=== PATIENT | male | born 1945 | race Caucasian/White ===

== ENCOUNTER 2016-11-22 08:26 | Outpatient (CLI) | payer MEDICARE ==
--- NOTE | 2016-11-22 12:47 | DEXA Report ---
DEXA BONE MINERAL DENSITY SCAN: 11/22/2016 CLINICAL HISTORY: A 70-year-old male with primary hyperparathyroidism. TECHNIQUE: Dual energy x-ray absorptiometry (DXA) was performed on a [employer] system. Regions measured are the AP spine, femoral neck, and, if needed, forearm. COMPARISON: None. In accordance with the International Society for Clinical Densitometry (ISCD) guidelines, data from previous exams may be reanalyzed using current recommendations and techniques. This is done to allow a more accurate basis for comparison with the current study. FINDINGS: It must be noted that there are no WHO guidelines for males. Present exam will be interpreted using WHO guidelines for females. Radius 33%. Bone mineral density is 1.134 grams/sq cm for a T-score of 1.5. This is within normal limits according to World Health Organization guidelines for females. L1 through L4 bone mineral density is 1.753 grams/sq cm for a T-score of 4.4. This is within normal limits according to World Health Organization guidelines for females. Left total hip bone mineral density is 1.220 grams/sq cm. This is compatible with a T-score of 0.8 which is within normal limits according to World Health Organization guidelines for females. Left femoral neck bone mineral density is 0.988 grams/sq cm for a T-score of - 0.6. This is within normal limits according to World Health Organization guidelines for females. The data for the lumbar spine is as follows: REGION BMD (g/cm/cm) T-SCORE Z-SCORE L1 1.546 3.2 3.0 L2 1.854 5.1 4.9 L3 1.962 6.0 5.8 L4 1.671 3.6 3.4 TOTAL 1.753 4.4 4.2 NOTE: All evaluable vertebrae are used for classification. The data for the hip is as follows: REGION BMD (g/cm/cm) T-SCORE Z-SCORE Neck 0.988 -0.6 0.1 TOTAL 1.220 0.8 1.1 NOTE: The femoral neck or total proximal femur, whichever is lowest, is used for classification. The data for the forearm is as follows: REGION BMD (g/cm/cm) T-SCORE Z-SCORE 1/3 1.134 1.5 2.3 NOTE: The 33% radius of the nondominant forearm is used for classification. IMPRESSION: THE WHO CLASSIFICATION BASED ON THE INTERNATIONAL REFERENCE STANDARD FOR FEMALES IS NORMAL DISCUSSED ABOVE. THE PATIENT HAS NO INCREASED FRACTURE RISK. RECOMMENDATION: Patients with diagnosis of osteoporosis or osteopenia should have regular bone mineral density assessment. For those eligible for Medicare, routine testing is allowed once every 2 years. Testing frequency can be increased for patients who have rapidly progressing disease or for those who are receiving medical therapy to restore bone mass. COMMENT: World Health Organization (WHO) definitions for osteoporosis and osteopenia: NORMAL BMD: T-score at -1.0 or higher, fracture risk is low. OSTEOPENIA BMD: T-score between -1.0 and -2.5, fracture risk is increased. OSTEOPOROSIS BMD: T-score at -2.5 or lower, fracture risk high. National Osteoporosis Foundation recommends: 1. Obtain adequate dietary calcium (at least 1200 mg per day) and vitamin D (400 -800 international units per day). 2. Participate, as appropriate, in regular weightbearing and muscle- strengthening exercise. 3. Avoid tobacco use and reduce alcohol and caffeine intake. 4. For more detailed information see the website at www.NOF.org. MTDD
--- NOTE | 2016-11-23 10:00 | Ultrasound Report ---
RETROPERITONEAL ULTRASOUND: 11/22/2016 The patient has primary hyperparathyroidism. TECHNIQUE: Real-time scanning was performed with medical field representative static images obtained. Right and left kidneys measure 11.8 cm in length. Kidneys showed no renal masses. No obvious calcul i are seen in either kidney. No pyelocalyceal system distention is noted. Bladder prevoid volume is 326 mL. Bladder postvoid volume is 19.4 mL. Patient's prostate shows some mild enlargement. Prostate shows a volume of 24 mL. IMPRESSION: NORMAL KIDNEYS. NORMAL BLADDER WITH A MINIMAL INCREASED POSTVOID RESIDUAL OF 19.4 ML. JOB #: [id number] EXT JOB #:[id number]
== END 2016-11-22 08:27 | disposition home or self-care (01) ==
LOC: DI 08:26
PROVIDERS: ATTEND Internal Medicine
DX: E21.0 Primary hyperparathyroidism (principal)
CPT/HCPCS: 76770; 77080; 77081

== ENCOUNTER 2017-03-14 21:50 | Outpatient (CLI) | payer MEDICARE | END 2017-03-14 21:51 | disposition EMS.NT | LOC: EMS 21:50 | PROVIDERS: ATTEND Surgery | DX: S01.81XA Laceration without foreign body of other part of head, initial encounter (principal); W18.30XA Fall on same level, unspecified, initial encounter; Y92.009 Unspecified place in unspecified non-institutional (private) residence as the place of occurrence of the external cause ==

== ENCOUNTER 2022-11-12 08:50 | Outpatient (CLI) | payer MEDICARE ==
--- NOTE | 2022-11-12 10:32 | XRAY Report ---
PROCEDURE: Hip w/Pelvis 2-3V RT INDICATIONS: PAIN TECHNIQUE: AP pelvis with lateral view(s) of the right hip(s). COMPARISON: None. FINDINGS: Bones: No fractures or dislocations. No suspicious bony lesions. Nonuniform joint space narrowing with osteophytic lipping. Soft tissues: No suspicious soft tissue calcifications or masses. IMPRESSION: Mild right hip osteoarthritis. Kellgren-Patrick scale of osteoarthritis: 2. Reviewed by: Fredy Kulkarni on 11/12/2022 10:31 AM PDT Approved by: Fredy Kulkarni on 11/12/2022 10:31 AM PDT Station ID: [id number]
== END 2022-11-12 08:51 | disposition home or self-care (01) ==
LOC: DI 08:50
PROVIDERS: ATTEND Internal Medicine
DX: M16.11 Unilateral primary osteoarthritis, right hip (principal)

== ENCOUNTER 2023-04-18 11:12 | Outpatient (CLI) | payer MEDICARE | END 2023-04-18 11:13 | disposition home or self-care (01) | LOC: RT 11:12 | PROVIDERS: ATTEND Orthopaedic Surgery Adult Reconstructive Orthopaedic Surgery | DX: Z01.818 Encounter for other preprocedural examination (principal) | CPT/HCPCS: 93005 ==